=== PATIENT | female | born 1990 | race American Indian/Alaskan Native ===

== ENCOUNTER 2018-07-02 00:01 | Emergency (ER) | payer SELFPAY ==
[2018-07-02] MEDS ORDERED: DUONEB *Not for PRN Use IH ONE ×2 (00:39→00:53)
[2018-07-02 01:24] LABS: Basophils # (Auto) 0.3 K/mm3 (0.0-0.1); Basophils % (Auto) 2.6 % (0.0-1.8); Eosinophils # (Auto) 0.3 K/mm3 (0.0-0.4); Eosinophils % (Auto) 2.6 % (0.0-4.3); Hematocrit 37.9 % (30.3-42.9); Hemoglobin 12.6 gm/dl (10.1-14.3); Lymphocytes # (Auto) 2.2 K/mm3 (1.2-5.4); Lymphocytes % (Auto) 21.7 % (13.4-35.0); Mean Corpuscular HGB Conc 33 % (30-34); Mean Corpuscular Hemoglobin 27 pg (28-32); Mean Corpuscular Volume 81 fl (79-97); Monocytes # (Auto) 0.8 K/mm3 (0.0-0.8); Monocytes % (Auto) 7.7 % (0.0-7.3); Platelet Count 314 K/mm3 (140-440); Red Blood Count 4.68 M/mm3 (3.65-5.03); Red Cell Distribution Width 13.2 % (13.2-15.2)
[2018-07-02 01:36] LABS: BUN/Creatinine Ratio 16; Blood Urea Nitrogen 8 mg/dL (7-17); Calcium 9.3 mg/dL (8.4-10.2); Hemolysis Index 6
[2018-07-02] MEDS ORDERED: DELTASONE PO ONE (02:42)
[2018-07-02] MEDS ORDERED: ZITHROMAX PO ONE (02:42)
--- NOTE | 2018-07-02 02:50 | XRay Report ---
FINAL REPORT PROCEDURE: XR CHEST 1V AP TECHNIQUE: Chest radiograph anteroposterior view. HISTORY: Shortness of breath. COMPARISON: No prior studies are available for comparison. FINDINGS: Heart: Heart size top-normal. Mediastinum/Vessels: Normal. Lungs/Pleural space: Low lung volumes. Bony thorax: No acute osseous abnormality. Life support devices: None. IMPRESSION: Heart size top-normal, may be accentuated by portable technique. Low lung volumes. Evaluation limited by patient body habitus.
[2018-07-02 03:13] VITALS: BP 129/75
--- NOTE | 2018-07-02 03:15 | Emergency Department Report ---
ED Shortness of Breath HPI - General Chief Complaint: Dyspnea/Respdistress Stated Complaint: ERNA Time Seen by Provider: 07/02/18 02:19 Source: patient Mode of arrival: Stretcher Limitations: No Limitations - History of Present Illness Initial Comments: 27-year-old female with a past medical history of cervical cancer and pulmonary embolism about 4 years ago (not currently on anticoagulation) presents to the hospital with complaints of shortness of breath that started at 10 AM yesterday. Upon EMS arrival they noted she was wheezing unable to speak in complete sentences. After receiving nebulizer treatment symptoms improved. Patient denies a previous history of asthma. She has a one day history of cough with clear sputum and wheezing. She denies fever, hemoptysis, chest pain , abdominal pain, calf enderness, or leg edema. She completed chemotherapy for cervical cancer and is scheduled to have surgery in September. - Related Data Previous Rx's Medication Instructions Recorded Last Taken Type Albuterol Sulfate [Ventolin HFA] 2 puff IH Q4H PRN #1 hfa.aer.ad 07/02/18 Unknown Rx Azithromycin [Zithromax Z-DORON] 1 dose PO DAILY 5 Days tab 07/02/18 Unknown Rx Benzonatate [Tessalon Perles] 100 mg PO Q8HR PRN #20 capsule 07/02/18 Unknown Rx Inhaler, Assist Devices [Space 1 each MC PRN #1 spacer 07/02/18 Unknown Rx Chamber Plus] Prednisone [predniSONE 10 mg 10 mg PO .TAPER #1 tab.ds.pk 07/02/18 Unknown Rx (6-Day Pack, 21 Tabs)] Allergies Allergy/AdvReac Type Severity Reaction Status Date / Time No Known Allergies Allergy Unverified 07/02/18 00:51 ED Review of Systems ROS: Stated complaint: ERNA Other details as noted in HPI Comment: All other systems reviewed and negative ED Past Medical Hx - Past Medical History Hx Pulmonary Embolism: Yes Hx of Cancer: Yes (cervical cancer) - Surgical History Additional Surgical History: X2 - Social History Smoking Status: Never Smoker Substance Use Type: None - Medications Home Medications: Home Medications Medication Instructions Recorded Confirmed Last Taken Type Albuterol Sulfate [Ventolin HFA] 2 puff IH Q4H PRN #1 hfa.aer.ad 07/02/18 Unknown Rx Azithromycin [Zithromax Z-DORON] 1 dose PO DAILY 5 Days tab 07/02/18 Unknown Rx Benzonatate [Tessalon Perles] 100 mg PO Q8HR PRN #20 capsule 07/02/18 Unknown Rx Inhaler, Assist Devices [Space 1 each MC PRN #1 spacer 07/02/18 Unknown Rx Chamber Plus] Prednisone [predniSONE 10 mg 10 mg PO .TAPER #1 tab.ds.pk 07/02/18 Unknown Rx (6-Day Pack, 21 Tabs)] ED Physical Exam - General Limitations: No Limitations - Other Other exam information: General: No limitations, patient is alert in no acute distress Head exam: Atraumatic, normocephalic Eyes exam: Normal appearance ENT: Moist mucous membrane, normal oropharynx Neck exam: Normal inspection, full range of motion, no meningismus nontender Respiratory exam: Clear to auscultation bilateral, no wheezes, rales, crackles Cardiovascular: Normal rate and rhythm, normal heart sounds Abdomen: Soft, nondistended, and nontender, with normal bowel sounds, no rebound, or guarding Extremity: Full range of motion normal inspection no deformity, no calf tenderness or edema Back: Normal Inspection, full range of motion, no tenderness Neurologic: Alert, oriented x3, cranial nerves intact, no motor or sensory deficit Psychiatric: normal affect, normal mood Skin: Warm, dry, intact ED Course Vital Signs 07/02/18 07/02/18 07/02/18 00:12 01:14 01:15 Temperature 98.3 F Pulse Rate 125 H 111 H 112 H Respiratory 18 12 17 Rate Blood Pressure 135/90 O2 Sat by Pulse 97 98 99 Oximetry 07/02/18 07/02/18 01:30 01:34 Temperature Pulse Rate 103 H Respiratory 13 28 H Rate Blood Pressure 134/88 O2 Sat by Pulse 99 99 Oximetry ED Medical Decision Making - Lab Data Result diagrams: 07/02/18 01:04 07/02/18 01:04 Lab Results 07/02/18 07/02/18 07/02/18 Range/Units 01:04 01:04 01:04 WBC 10.1 (4.5-11.0) K/mm3 RBC 4.68 (3.65-5.03) M/mm3 Hgb 12.6 (10.1-14.3) gm/dl Hct 37.9 (30.3-42.9) % MCV 81 (79-97) fl MCH 27 L (28-32) pg MCHC 33 (30-34) % RDW 13.2 (13.2-15.2) % Plt Count 314 (140-440) K/mm3 Lymph % (Auto) 21.7 (13.4-35.0) % [place] % (Auto) 7.7 H (0.0-7.3) % Eos % (Auto) 2.6 (0.0-4.3) % Baso % (Auto) 2.6 H (0.0-1.8) % Lymph # 2.2 (1.2-5.4) K/mm3 [place] # 0.8 (0.0-0.8) K/mm3 Eos # 0.3 (0.0-0.4) K/mm3 Baso # 0.3 H (0.0-0.1) K/mm3 Seg Neutrophils % 65.4 (40.0-70.0) % Seg Neutrophils # 6.6 (1.8-7.7) K/mm3 Sodium 136 L (137-145) mmol/L Potassium 3.6 (3.6-5.0) mmol/L Chloride 99.4 (98-107) mmol/L Carbon Dioxide 22 (22-30) mmol/L Anion Gap 18 mmol/L BUN 8 (7-17) mg/dL Creatinine 0.5 L (0.7-1.2) mg/dL Estimated GFR > 60 ml/min BUN/Creatinine Ratio 16 % Glucose 117 H (65-100) mg/dL Calcium 9.3 (8.4-10.2) mg/dL HCG, Qual Negative (Negative) - Radiology Data Radiology results: report reviewed FINAL REPORT PROCEDURE: XR CHEST 1V AP TECHNIQUE: Chest radiograph anteroposterior view. HISTORY: Shortness of breath. COMPARISON: No prior studies are available for comparison. FINDINGS: Heart: Heart size top-normal. Mediastinum/Vessels: Normal. Lungs/Pleural space: Low lung volumes. Bony thorax : No acute osseous abnormality. Life support devices: None. IMPRESSION: Heart size top-normal, may be accentuated by portable technique. Low lung volumes. Evaluation limited by patient body habitus. - Differential Diagnosis asthma, bronchitis, pneumonia, CHF Critical Care Time: No Critical care attestation.: If time is entered above; I have spent that time in minutes in the direct care of this critically ill patient, excluding procedure time. ED Disposition Clinical Impression: Acute bronchitis Disposition: DC-01 TO HOME OR SELFCARE Is pt being admited?: No Does the pt Need Aspirin: No Condition: Stable Instructions: Acute Bronchitis (ED) Additional Instructions: Take the medication as prescribed. Follow up with your doctor or the doctor/ clinic provided. Return if symptoms worsen as indicated by your discharge instructions Prescriptions: Albuterol Sulfate [Ventolin HFA] 2 puff IH Q4H PRN #1 hfa.aer.ad PRN Reason: Shortness Of Breath Azithromycin [Zithromax Z-DORON] 1 dose PO DAILY 5 Days tab Benzonatate [Tessalon Perles] 100 mg PO Q8HR PRN #20 capsule PRN Reason: Cough Inhaler, Assist Devices [Space Chamber Plus] 1 each MC PRN #1 spacer Prednisone [predniSONE 10 mg (6-Day Pack, 21 Tabs)] 10 mg PO .TAPER #1 tab.ds.pk Referrals: NICHOLAS FRIEDMAN MD [Primary Care Provider] - 3-5 Days [facility] [Provider Group] - 3-5 Days TOSHIA ZIMEMRMAN MD [Staff Physician] - 3-5 Days Time of Disposition: 03:17
== END 2018-07-02 03:44 | disposition home or self-care (01) ==
LOC: ED 00:01
DX: J20.9 Acute bronchitis, unspecified (principal); Z86.711 Personal history of pulmonary embolism
CPT/HCPCS: 36415; 71045; 80048; 84703; 85025; 93005; 93010; 94640; 99284; J7512